=== PATIENT | female | born 1970 | race Caucasian/White ===

== ENCOUNTER 2022-05-11 15:24 | Outpatient (CLI) | payer MEDICAID, SELFPAY ==
--- OUTSIDE RECORDS SUMMARY | 2022-05-11 15:31 | XMS_ITS | Clinical Summary ---
:1970 Author Organization [facility] [place] [address] Care Team Providers Name Role Phone Sim Hawley MD Primary Care Provider [phone] Allergies Active Allergy Reactions Severity Noted Date Comments House Dust Shortness Of Breath 01/25/2014 Morphine Nausea And Vomiting 01/23/2008 Sheep/Ovine Containing Products Atopic Dermatitis 01/2014 Medications Medication Sig Dispensed Refills Start Date End Date Status omeprazole (PRILOSEC) Take 1 capsule 30 capsule 12 01/25/2017 Active 20 mg Delayed-Release by mouth once capsuleIndications: daily before a Gastroesophageal reflux meal. disease without esophagitis albuterol HFA (PROAIR Inhale 2 Puffs 1 Inhaler 12 01/25/2017 Active HFA) 90 mcg/actuation by mouth every 4 inhalerIndications: hours if needed. Moderate persistent asthma, uncomplicated albuterol (PROVENTIL) Inhale 3 mL via 2 box 12 01/25/2017 Active 0.083 % neb a nebulizer 4 solutionIndications: times daily if Moderate persistent needed. asthma with acute exacerbation fluticasone (50 mcg per Inhale 2 Sprays 1 Bottle 12 01/25/2017 Active actuation) nasal into both solution nostrils once (FLONASE)Indications: daily. Seasonal allergic rhinitis due to pollen ranitidine (ZANTAC) 300 Take 1 tablet by 90 tablet 3 7 Active mg tabletIndications: mouth at Gastroesophageal reflux bedtime. disease without esophagitis fluticasone-salmeterol Inhale 1 Puff by 1 unit 2 06/21/2017 Active 232-14 mcg/actuation mouth 2 times aepbIndications: daily. Moderate persistent asthma without complication triamcinolone APPLY CREAM 135 g 0 10/05/2017 Act shamir (ARISTOCORT; KENALOG) EXTERNALLY TO 0.1 % creamIndications: AFFECTED AREA Atopic dermatitis TWICE DAILY APPLY THIN LAYER budesonide-formoterol Inhale 2 Puffs 3 Inhaler 12 04/13/2018 Active (SYMBICORT) 160-4.5 by mouth 2 times mcg/actuation (160-4.5 daily. mcg each actuation) inhalerIndications: Moderate persistent asthma, uncomplicated Active Problems Problem Noted Date Atopic dermatitis 06/21/2013 Moderate persistent asthma 09/23/2011 ALLERGIC RHINITIS 01/24/2008 Resolved Problems Problem Noted Date Resolved Date Unspecified asthma(493.90) 01/24/2008 09/23/2011 Encounters Date Type Specialty Care Team Description 03/13/2022 Emergency June Goode Foreign b anabella in [place] esophagus, ini tial encounter (Prim kevan Dx) 03/13/2022 Travel 02/15/2022 Everyday Online Tricia Duvall PA from Last 3 Months Immunizations Name Administration Dates Next Due Influenza, IIV3 (Age >=3 years) 06/15/2012 Influenza, IIV4 08/12/2015 Pneumococcal Poly,23-Valent (Pneumovax) 06/15/2012 Tdap 10/13/2011 Family History Medical History Relation Name Comments COPD Mother Diabetes Mother Hypertension Mother Relation Name Status Comments Brother Alive Father Alive Mother (Age 67) 2006 Social History Tobacco Use Types Packs/Day Years Used Date Never Smoker Smokeless Tobacco: Never Used Tobacco Cessation: Counseling Given: Yes Alcohol Use Standard Drinks/Week Comments Yes 0 (1 standard drink = 0.6 oz pure alcoho l) socially Alcohol Habits Answer Date Recorded How often do you have a drink containing alcohol? Not asked How many drinks containing alcohol do you have on a typical Not asked day when you are drinking? How often do you have six or more drinks on one occasion? No t asked Comment: socially 05/07/2008 Sex Assigned at Date Recorded Not on file Obstetrics History Last Filed Vital Signs Vital Sign Reading Time Taken Comments Blood Pressure 128/85 03/13/2022 12:11 PM CDT Pulse 78 03/13/2022 12:11 PM CDT Temperature 36.7 ??C (98.1 ??F) 03/13/2022 12:11 PM CDT Respiratory Rate 18 03/13/2022 12:11 PM CDT Oxygen Saturation 100% 03/13/2022 12:11 PM CDT Inhaled Oxygen Concentration - - Weight 68 kg (150 lb) 03/13/2022 12:11 PM CDT Height 162.6 cm (5' 4) 03/13/2022 12:11 PM CDT Body Mass Index 25.75 03/13/2022 12:11 PM CDT Plan of Treatment Health Maintenance Due Date Last Done Comments COVID-19 vaccine series (#1) 03/01/1970 Hepatitis C screening for age 0109/01/1987 18-79 Colonoscopy through age 75 2014 Lipids for age 45-75 2014 Mammogram for age 45-75 2014 11/22/2012, 10/12/2011 BMI (ht and wt on same day) for 01/25/2018 01/25/2017, 11/20, age 18+ 09/29/2015 Depression screening for age 12+ 01/25/2018 01/25/2017, 10/2016, 12/02/2015, Additional history exists Pap test for age 21-65 08/12/2018 08/12/2015, 10/13/2011 Zoster (shingles) series for age 0109/01/2019 50+ (1 of 2) Tetanus booster 10/13/2021 10/13/2011, 08/09/2002 Influenza for age 50-64 04/22/2022 08/12/2015, 06/15/2012 Tdap Completed 10/13/2011 Results Not on filefrom Last 3 Months Insurance Payer Benefit Plan / Subscriber ID Effective Dates Phone Addre ss Type Group RAIZA EASTMAN MA [id number] 2021-Present [address] [place] [address] Care Teams Chemist Organic Relationship Specialty Start Date End Date Sim Hawley MD PCP - General 11/15/07
--- NOTE | 2022-05-11 15:40 | CRLHL7_ITS ---
For Patients: As a result of the Century Cures Act, medical imaging exams and procedure reports are released immediately into your electronic medical record. You may view this report before your referring provider. If you have questions, please contact your health care provider. BILATERAL SCREENING MAMMOGRAM WITH COMPUTER-AIDED DETECTION AND TOMOSYNTHESIS TECHNIQUE: CC and MLO views were obtained. These mammographic images have been obtained using full-field digital technique. These mammographic images were interpreted with the benefit of computer-aided detection. Breast Tomosynthesis was used in this interpretation. COMPARISON FILM: 11/23/2012 [facility]. FINDINGS: The breasts are heterogeneously dense, which may obscure small masses IMPRESSION: There is no radiographic evidence for malignancy. ASSESSMENT: BI-RADS Category 2: Benign RECOMMENDATION: Routine screening mammogram in 1 year. A lay language report of this examination will be provided to the patient. Sim Granda M.D. Diagnostic Radiologist [email or web address] MEE/Dictated by: Sim Granda MD @ 05/20/2022 1:11:00 PM (Electronically Signed)
== END 2022-05-11 15:25 | disposition home or self-care (01) ==
LOC: MAMMO 15:25
PROVIDERS: PCP Family Medicine; Visit Provider Family Medicine
DX: Z12.31 Encounter for screening mammogram for malignant neoplasm of breast (principal); R92.2 Inconclusive mammogram
CPT/HCPCS: 77063; 77067

== ENCOUNTER 2022-09-06 10:47 | Outpatient (CLI) | payer MEDICAID, SELFPAY ==
[2022-09-06 13:37] LABS: Chloride* 107 mmol/L (96-114); Potassium* 3.7 mmol/L (3.6-5.1); Sodium* 143 mmol/L (135-149)
[2022-09-06 13:39] LABS: Creatinine* 0.6 mg/dL (0.5-1.5); Estimated Glomerular Filt Rate 107 ml/min
[2022-09-06 13:40] LABS: Alanine Aminotransferase* 68 U/L (4-35); Alkaline Phosphatase* 97 U/L (40-150); Bilirubin Total* 0.9 mg/dL (0.1-1.5); Blood Urea Nitrogen* 15 mg/dL (7-30); Calcium* 9.4 mg/dL (8.4-10.6); Carbon Dioxide* 23 mmol/L (20-32); Glucose* 88 mg/dL (60-115); Total Protein* 8.9 g/dL (6.0-8.3)
[2022-09-06 14:30] LABS: Vitamin B12* 446 pg/mL (243-894)
[2022-09-06 16:04] LABS: Aspartate Amino Transferase* 122 U/L (12-35)
[2022-09-08 19:34] LABS: Folate, Serum 12.1 ng/mL (>=5.9)
== END 2022-09-06 10:48 | disposition home or self-care (01) ==
PROVIDERS: PCP Family Medicine; Visit Provider Family Medicine
DX: R53.83 Other fatigue (principal); D64.9 Anemia, unspecified
CPT/HCPCS: 80053; 82607; 82728; 82746; 84443

== ENCOUNTER 2024-03-26 14:00 | Outpatient (CLI) | payer MEDICAID, SELFPAY ==
--- OUTSIDE RECORDS SUMMARY | 2024-03-26 14:03 | XMS_ITS | Clinical Summary ---
Author Organization [facility] Address [place], [place] [address] Care Team Providers Care Emergency Response Coordinator Name Role Phone Sim Hawley MD Primary Care Provider + Allergies Active Allergy Reactions Criticality Noted Date Comments House Dust Shortness Of Breath 01/25/2014 Morphine Nausea And Vomiting 01/23/2008 Sheep/Ovine/Luther Containing Products Atopic Dermatitis 01/25/2014 Medications Medication Sig Dispensed Refills Start Date End Date Status omeprazole (PRILOSEC) 20 mg Delayed-Release capsuleIndications:G astroesophageal reflux disease without esophagitis Take 1 capsule by mouth once daily before a meal. 30 capsule 12 01/25/2017 Active albuterol HFA (PROAIR HFA) 90 mcg/actuation inhalerIndications:M oderate persistent asthma, uncomplicated Inhale 2 Puffs by mouth every 4 hours if needed. 1 Inhaler 12 01/25/2017 Active albuterol (PROVENTIL) 0.083 % neb solutionIndications: Moderate persistent asthma with acute exacerbation Inhale 3 mL via a nebulizer 4 times daily if needed. 2 box 12 01/25/2017 Active fluticasone (50 mcg per actuation) nasal solution (FLONASE)Indications :Seasonal allergic rhinitis due to pollen Inhale 2 Sprays into both nostrils once daily. 1 Bottle 12 01/25/2017 Active ranitidine (ZANTAC) 300 mg tabletIndications:Ga stroesophageal reflux disease without esophagitis Take 1 tablet by mouth at bedtime. 90 tablet 3 05/13/2017 Active fluticasone-salmeter ol 232-14 mcg/actuation aepbIndications:Mode rate persistent asthma without complication Inhale 1 Puff by mouth 2 times daily. 1 unit 2 06/21/2017 Active triamcinolone (ARISTOCORT; KENALOG) 0.1 % creamIndications:Abhijeet pic dermatitis APPLY CREAM EXTERNALLY TO AFFECTED AREA TWICE DAILY APPLY THIN LAYER 135 g 10/05/2017 Active budesonide-formotero l (SYMBICORT) 160-4.5 mcg/actuation (160-4.5 mcg each actuation) inhalerIndications:M oderate persistent asthma, uncomplicated Inhale 2 Puffs by mouth 2 times daily. 3 Inhaler 12 04/13/2018 Active Active Problems Problem Noted Date Diagnosed Date Atopic dermatitis 06/21/2013 Moderate persistent asthma 09/23/2011 ALLERGIC RHINITIS 01/24/2008 Resolved Problems Problem Noted Date Diagnosed Date Resolved Date Unspecified asthma(493.90) 01/24/2008 0 09/23/2011 Immunizations Name Administration Dates Next Due Influenza, IIV3 (Age >=3 years) 06/15/2012 Influenza, IIV4 08/12/2015 Pneumococcal Poly,23-Valent (Pneumovax) 06/15/20 12 Tdap 10/13/2011 Family History Medical History Relation Name Comments COPD Mother Diabetes Mother Hypertension Mother Relation Name Status Comments Brother Alive Father Alive Mother (Age 67) 2006 Social History Tobacco Use Types Packs/Day Years Used Date Smoking Tobacco: Never Smokeless Tobacco: Never Tobacco Cessation:Counseling Given: Yes Alcohol Use Standard Drinks/Week Comments Yes 0 (1 standard drink = 0.6 oz pur e alcohol) socially Sex and Gender Information Value Date Recorded Sex Assigned at Not on file Gender Identity Not on file Sexual Orientation Not on file Obstetrics History Last Filed Vital Signs Vital Sign Reading Time Taken Comments Blood Pressure 128/85 03/13/2022 12:11 PM CDT Pulse 78 03/13/2022 12:11 PM CDT Temperature 36.7 ??C (98.1 ??F) 03/13/2022 12:11 PM C DT Respiratory Rate 18 03/13/2022 12:11 PM CDT Oxygen Saturation 100% 03/13/2022 12:11 PM CDT Inhaled Oxygen Concentration - - Weight 68 kg (150 lb) 03/13/2022 12:11 PM CDT Height 162.6 cm (5' 4) 03/13/2022 12:11 PM CDT Body Mass Index 25.75 03/13/2022 12:11 PM CDT Plan of Treatment Health Maintenance Due Date Last Done Comments HIV for age 15-65 1984 Hepatitis C screening for age 18-79 1987 Colonoscopy through age 75 2014 Lipids for age 45-75 2014 Mammogram for age 45-75 2014 11/22/2012, 10/12 BMI (ht and wt on same day) for age 18+ 01/25/2018 01/25/2017, 12/02/2015, 09/29/2015 Depression screening for age 12+ 01/25/2018 01/25/2017, 01/22/2017, 12/02/2015, Additional history exists Zoster (shingles) series for age 50+ (1 of 2) 2019 Tetanus booster 10/13/2021 10/13/2011, 08/09/2002 COVID-19 vaccine series ( season) 2023 Influenza for age 50-64 04/22/2024 08/12/2015, 06/15 Pap test for age 21-65 10/19/2025 3, 10/19/2022, 08/12/2015, Additional history exists Tdap Completed 10/13/2011 Pneumococcal series for age 6-64 Aged Out 06/15/2012 No longer eligible based on patient's age to complete this topic Procedures Procedure Name Priority Date/Time Associated Diagnosis Comments HPV THIN PREP Routine 10/19/2022 12:00 PM COMMUNICATIONS SENIOR ASSOCIATE from Last 3 Months or Most Recently Relevant to Health Maintenance Results * HPV HIGH RISK (10/19/2022 12:00 PM COMMUNICATIONS SENIOR ASSOCIATE) TYPE 16 Negative Negative 10/25/2022 11:14 AM COMMUNICATIONS SENIOR ASSOCIATE [facility] TYPE 18 Negative Negative 10/25/2022 11:14 AM COMMUNICATIONS SENIOR ASSOCIATE [facility] OTHER HIGH RISK TYPES Negative Negative 10/25/2022 11:14 AM COMMUNICATIONS SENIOR ASSOCIATE [facility] Other (Cervical) 10/19/2022 12:00 PM COMMUNICATIONS SENIOR ASSOCIATE 10/22/2022 8:47 AM COMMUNICATIONS SENIOR ASSOCIATE Narrative [facility] - 10/25/2022 11:14 AM COMMUNICATIONS SENIOR ASSOCIATE HPV types 16, 18, 31, 33, 35, 39, 45, 51, 52, 56, 58, 59, 66 and 68 DNA were undetectable or below the pre-set threshold. Methodology: Jl Chaitanya 4800 HPV Test Tayla Pollard TANNING SALON ATTENDANT MICROBIOLOGY [facility] [address] [place] [address], from Last 3 Months or Most Recently Relevant to Health Maintenance Care Teams Emergency Response Coordinator Relationship Specialty Start Date End Date Sim Hawley MD PCP - General 11/15/07
== END 2024-03-26 14:01 | disposition home or self-care (01) ==
PROVIDERS: PCP Family Medicine; Visit Provider Family Medicine
DX: R74.8 Abnormal levels of other serum enzymes (principal); D64.9 Anemia, unspecified; Z13.6 Encounter for screening for cardiovascular disorders
CPT/HCPCS: 80048; 80061; 80076

== ENCOUNTER 2024-07-31 14:51 | Outpatient (CLI) | payer MEDICAID, SELFPAY ==
--- OUTSIDE RECORDS SUMMARY | 2024-07-31 14:54 | XMS_ITS | Clinical Summary ---
Author Organization [facility] Address [place], [place] [address] Care Team Providers Care Backrest Assembler Name Role Phone Sim Hawley MD Primary Care Provider + Allergies Active Allergy Reactions Criticality Noted Date Comments House Dust Shortness Of Breath 01/25/2014 Morphine Nausea And Vomiting 01/23/2008 Sheep/Ovine/Luther Containing Products Atopic Dermatitis 01/25/2014 Medications omeprazole (PRILOSEC) 20 mg Delayed-Release capsuleIndication s:Gastroesophagea l reflux disease without esophagitis Take 1 capsule by mouth once daily before a meal. 30 capsule 7 Active albuterol HFA (PROAIR HFA) 90 mcg/actuation inhalerIndication s:Moderate persistent asthma, uncomplicated Inhale 2 Puffs by mouth every 4 hours if needed. 1 Inhaler 12 7 Active albuterol (PROVENTIL) 0.083 % neb solutionIndicatio ns:Moderate persistent asthma with acute exacerbation Inhale 3 mL via a nebulizer 4 times daily if needed. 2 box 12 7 Active fluticasone (50 mcg per actuation) nasal solution (FLONASE)Indicati ons:Seasonal allergic rhinitis due to pollen Inhale 2 Sprays into both nostrils once daily. 1 Bottle 12 7 Active ranitidine (ZANTAC) 300 mg tabletIndications :Gastroesophageal reflux disease without esophagitis Take 1 tablet by mouth at bedtime. 90 tablet 3 7 Active fluticasone-salme terol 232-14 mcg/actuation aepbIndications:M oderate persistent asthma without complication Inhale 1 Puff by mouth 2 times daily. 1 unit 2 7 Active triamcinolone (ARISTOCORT; KENALOG) 0.1 % creamIndications: Atopic dermatitis APPLY CREAM EXTERNALLY TO AFFECTED AREA TWICE DAILY APPLY THIN LAYER 135 g 8 Active budesonide-formot abe (SYMBICORT) 160-4.5 mcg/actuation (160-4.5 mcg each actuation) inhalerIndication s:Moderate persistent asthma, uncomplicated Inhale 2 Puffs by mouth 2 times daily. 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 Not on file Not on file Obstetrics History Last Filed Vital Signs Vital Sign Reading Time Taken Comments Blood Pressure 128/85 03/13/2022 12:11 PM CDT Pulse 78 03/13/2022 12:11 PM CDT Temperature 36.7 C (98.1 F) 03/13/2022 12:11 PM CDT Respiratory Rate 18 [...] booster 10/13/2021 10/13/2011, 08/09/2002 COVID-19 vaccine series (2023- season) 2024 Influenza for age 50-64 04/22/2024 08/12/2015, 06/15 Pap test for age 21-65 10/19/2025 , 10/19/2022, 08/12/2015, Additional history exists Tdap Completed 10/13/2011 Pneumococcal series for age 6-64 Aged Out 06/15/2012 No longer eligible based on patient's age to complete this topic Procedures Procedure Name Priority Date/Time Associated Diagnosis Comments HPV HIGH RISK Routine 10/19/2022 12:00 PM TELLER SUPERVISOR from Last 3 Months or Most Recently Relevant to Health Maintenance Results * HPV HIGH RISK (10/19/2022 12:00 PM TELLER SUPERVISOR) TYPE 16 Negative Negative 10/25/2022 11:14 AM TELLER SUPERVISOR [facility] TYPE 18 Negative Negative 10/25/2022 11:14 AM TELLER SUPERVISOR [facility] OTHER HIGH RISK TYPES Negative Negative 10/25/2022 11:14 AM TELLER SUPERVISOR [facility] Other (Cervical) 10/19/2022 12:00 PM TELLER SUPERVISOR 10/22/2022 8:47 AM TELLER SUPERVISOR Narrative [facility] - 10/25/2022 11:14 AM TELLER SUPERVISOR HPV types 16, 18, 31, 33, 35, 39, 45, 51, 52, 56, 58, 59, 66 and 68 DNA were undetectable or below the pre-set threshold. Methodology: Jl Chaitanya 4800 HPV Test us Tayla Pollard ANIMAL HUSBANDRY PROFESSOR MICROBIOLOGY Final Res ult [facility] [address] [place] [address], from Last 3 Months or Most Recently Relevant to Health Maintenance Insurance [employer] Care Teams Backrest Assembler Relationship Specialty Start Date End Date Sim Hawley MD PCP - General 11/15/07
--- NOTE | 2024-07-31 15:00 | CRLHL7_ITS ---
For Patients: As a result of the Century Cures Act, medical imaging exams and procedure reports are released immediately into your electronic medical record. You may view this report before your referring provider. If you have questions, please contact your health care provider. BILATERAL SCREENING MAMMOGRAM WITH COMPUTER-AIDED DETECTION AND TOMOSYNTHESIS, 07/31/2024 TECHNIQUE: CC and MLO views were obtained. These mammographic images have been obtained using full-field digital technique. These mammographic images were interpreted with the benefit of computer-aided detection. Breast Tomosynthesis was used in this interpretation. COMPARISON FILM: 05/11/22, 11/22/12. FINDINGS: The breasts are heterogeneously dense, which may obscure small masses IMPRESSION: There is no radiographic evidence for malignancy. ASSESSMENT: BI-RADS Category 1: Negative RECOMMENDATION: Routine screening mammogram in 1 year. A lay language report of this examination will be provided to the patient. Sim Granda M.D. Diagnostic Radiologist [email or web address] JOSE/eron: Transcribed: 8:47 am DW/Dictated by: Sim Granda MD @ 08/01/2024 12:56:00 PM (Electronically Signed)
== END 2024-07-31 14:52 | disposition home or self-care (01) ==
LOC: MAMMO 14:52
PROVIDERS: PCP Family Medicine; Visit Provider Family Medicine
DX: Z12.31 Encounter for screening mammogram for malignant neoplasm of breast (principal); R92.333 Mammographic heterogeneous density, bilateral breasts
CPT/HCPCS: 77063; 77067